=== PATIENT | male | born 1980 | race Two or more races ===

== ENCOUNTER 2016-12-19 11:33 | Emergency (ER) | payer SELFPAY ==
--- NOTE | ~2016-12-19 | ER ---
PATIENT'S NAME: DIANNE MADREA [facility] AGE: 36 Y [address] ROOM: [place] [address] LOCATION: [facility] ADMIT DATE: 12/19/2016 ER/Outpatient Report DISCHARGE DATE: 12/19/2016 FAMILY PHYSICIAN: Howard Quintero MD ATTENDING PHYSICIAN: John Matthews CHIEF COMPLAINT: Head injury and dark stools. 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 He coughed, fell over on his chair and was unresponsive for a brief minute. He did strike his head. He woke up this morning and was feeling like he had more of a headache. He has been complaining of cough and nasal congestion for the last 2 weeks, and his significant other notes that he has had significant change in dark stool and occasionally is vomiting up some dark material as well. He normally drinks several beers a day. He had more than normal to drink last night. The patient denies any acute active bleeding, no bright red blood per rectum. PAST MEDICAL HISTORY: Documented on the record and reviewed by me. SOCIAL HISTORY: Documented on the record and reviewed by me. MEDICATIONS: Documented on the record and reviewed by me. ALLERGIES: DOCUMENTED ON THE RECORD AND REVIEWED BY ME. REVIEW OF SYSTEMS: All systems reviewed and negative except as noted in the HPI. PHYSICAL EXAMINATION: VITAL SIGNS: Blood pressure 146/70, pulse 82, respiratory rate is 22, temperature 97.8, SpO2 is 94% on room air. Pain is rated 2/10. GENERAL: Age-appropriate male, in no obvious pain or distress, tired appearance, sleeping upon my arrival, easily arousable. NEURO: Sleeping, easily arousable, interactive, awake and alert shortly after initiation of interaction. No focal deficits or asymmetry appreciated. HEENT: The patient is normocephalic and atraumatic. Eyes are PERRL. Oropharynx is clear. Nasal mucosa slightly boggy with purulent discharge. PATIENT'S NAME: DIANNE [facility]ADERA [facility] AGE: 36 Y [address] ROOM: [place] [id number] LOCATION: [facility] ADMIT DATE: 12/19/2016 ER/Outpatient Report DISCHARGE DATE: 12/19/2016 FAMILY PHYSICIAN: Howard Quintero MD ATTENDING PHYSICIAN: John Matthews Sinuses are tender to palpation. TMs are pearly schaefer bilaterally with no erythema or purulence appreciated. No tenderness at the mastoid process bilateral. NECK: Supple. Trachea is midline. No adenopathy. CHEST/HEART: Regular rate and rhythm. LUNGS: Clear to auscultation bilaterally. No rhonchi, wheezes, or rales. ABDOMEN: Soft, nontender, and nondistended. No rebound, guarding, or masses. BACK: Nontender to palpation throughout. No CVA tenderness. RECTAL: Exam with scant stool in the rectal vault. Good rectal tone. Unable to palpate the prostate. Stool is dark brown-schaefer in color. EXTREMITIES: Warm and well perfused. SKIN: Warm, dry, and intact. LABORATORY DATA AND X-RAYS: Head CT was obtained and was unremarkable per Radiology's read except for sinusitis. The labs are notable for Hemoccult-positive stool. Sodium 143, potassium 4.1, chloride 107, CO2 is 28, BUN is 8, creatinine 0.9, and GFR is greater than 60. LFTs are notable for an AST of 44, ALT of 70, otherwise normal. Amylase and lipase 57 and 107 respectively. WBC 7.4, hemoglobin 14.0, and platelets of 314. IMPRESSION: 1. Mild concussion. 2. Sinusitis. 3. Occult gastrointestinal bleeding. EMERGENCY DEPARTMENT COURSE: The patient was evaluated as above. CT scan was obtained for persistent headache in the setting of recent head trauma and somnolence. No bleeding. Sinusitis diagnosed on CT with 2 weeks of symptoms present indicate the patient requires treatment and was given a prescription for Augmentin for same. The patient does have Hemoccult-positive stool with his history of dark stools, dark emesis intermittently, drinking that there is a concern for possible occult bleed or cirrhosis or other concerning interventions. He does not have any evidence of anemia or hypovolemia and does not appear to be a brisk bleed. For these reasons, I think he can be seen as an outpatient. I contacted Dr. Fam, on-call GI doctor, to explain the case. We have secured an appointment with Dr. Carr on January 09 at 3 o'clock p.m. He should return to the emergency department immediately as needed. Tylenol for his headache as needed. He was given Tylenol here in the emergency department. All questions were answered. The patient was discharged in good condition. PATIENT'S NAME: BRAD DENIS [facility] AGE: 36 Y [address] ROOM: [place] [address] LOCATION: [facility] ADMIT DATE: 12/19/2016 ER/Outpatient Report DISCHARGE DATE: 12/19/2016 FAMILY PHYSICIAN: Howard Quintero MD ATTENDING PHYSICIAN: [place] MD WILTON JIMENES/juan daniell /[id number] d: 12/19/16 2353 t: 12/20/16 0642, OUTPATIENT REPORT
[2016-12-19 12:39] LABS: BASOPHIL % 0.7 %; EOSINOPHIL # 0.1 K/uL (0.0-0.5); EOSINOPHIL % 0.9 %; HEMATOCRIT 44.1 % (37.0-53.0); HEMOGLOBIN 13.9 g/dL (12.0-17.0); IMMATURE GRANULOCYTE % 0.5 %; LYMPHOCYTE # 1.7 K/uL (0.8-4.0); LYMPHOCYTE % 30.7 %; MCH 25.3 pg (27.0-34.0); MCHC 31.5 gm/dL (32.0-36.5); MCV 80.3 fl (83.0-98.0); MONOCYTE # 0.3 K/uL (0.0-1.0); MONOCYTE % 5.3 %; MPV 11.7 fl (9.4-12.4); NEUTROPHIL # (ANC) 3.4 K/uL (1.4-9.0); NEUTROPHIL % 61.9 %; NRBC % 0 /100WBC (0-0.00); PLATELET COUNT 189 K/uL (150-450); RBC 5.49 M/uL (4.00-6.00); RDW-CV 14.8 % (11.9-14.6); WBC 5.5 K/uL (4.0-11.0)
[2016-12-19 12:52] LABS: INR - (THERAPEUTIC) 1.1 (0.9-1.1); PROTIME 11.1 SECONDS (9.6-11.1); PTT 27 SECONDS (25-32)
[2016-12-19 12:56] LABS: ALK PHOS 89 IU/L (33-138); ALT 70 IU/L (12-78); ANION GAP 12.1 (10.0-19.0); AST 44 IU/L (10-40); BLOOD UREA NITROGEN 8 mg/dL (6-24); CALCIUM 8.1 mg/dL (8.5-10.5); CHLORIDE 107 mMol/L (96-110); CO2 28 mMol/L (22-32); CREATININE 0.9 mg/dL (0.6-1.3); ESTIMATED GFR (MDRD EQUATION) > 60; POTASSIUM 4.1 mMol/L (3.7-5.1); SODIUM 143 mMol/L (135-145); TOTAL BILIRUBIN 0.6 mg/dL (0.0-1.5); TOTAL PROTEIN 7.9 g/dL (6.0-8.4)
== END 2016-12-19 13:42 | disposition disaster alternative care site (69) ==
LOC: GMED 11:33
PROVIDERS: Emergency Medicine
DX: S06.0X1A Concussion with loss of consciousness of 30 minutes or less, initial encounter (principal); J32.9 Chronic sinusitis, unspecified; K92.2 Gastrointestinal hemorrhage, unspecified; W01.190A Fall on same level from slipping, tripping and stumbling with subsequent striking against furniture, initial encounter

== ENCOUNTER 2017-05-05 16:32 | Emergency (ER) | payer SELFPAY ==
--- NOTE | ~2017-05-05 | ER ---
[facility] AGE: 37 Y [address] ROOM: [place] [id number] LOCATION: [facility] ADMIT DATE: 05/05/2017 ER/Outpatient Report DISCHARGE DATE: 05/05/2017 FAMILY PHYSICIAN: Howard Quintero MD ATTENDING PHYSICIAN: Carla Griedr Time of Patient's Arrival: 1632 hours. Time of Patient's Evaluation: 1645 hours. CHIEF COMPLAINT: Left eye itching and swelling. HISTORY OF PRESENT ILLNESS: This is a 37-year-old, male, who presents to the ER with his . He states he has had some discharge, swelling, and itchiness to his left eye for the past 2 or 3 days. He has noticed some yellow drainage from the eye, mostly in the morning when he wakes up. His eyelid is also swollen and itchy. He states the white of his eye has also been red and irritated as well. They state they had some left over eyedrops from his daughter, so he did start applying those to his eyes yesterday. He has not had any fever or chills. No nasal congestion. No ear pain. No difficulty with his vision. He states he does not particularly feel like there is anything in his eye. ALLERGIES: NO KNOWN ALLERGIES. MEDICATIONS: None. PAST MEDICAL HISTORY: Negative. PAST SURGERIES: None. SOCIAL HISTORY: He does smoke cigarettes. Denies any use of drug or alcohol use. REVIEW OF SYSTEMS: CONSTITUTIONAL: Denies any change in weight or fatigue. HEENT: He is complaining of left eye irritation and eyelid swelling. NEUROLOGIC: Cranial nerves 2 through 12 grossly intact. RESPIRATORY: No shortness of breath or cough. SKIN: Has a swollen left eyelid. PATIENT'S NAME: [facility] AGE: 37 Y [address] ROOM: [place], [place] [address] LOCATION: ED ADMIT DATE: 05/05/2017 ER/Outpatient Report DISCHARGE DATE: 05/05/2017 FAMILY PHYSICIAN: Howard Quintero MD ATTENDING PHYSICIAN: Carla Grider PHYSICAL EXAMINATION: VITAL SIGNS: Height 5 feet 11 inches stated, weight 113.0 kg taken, blood pressure is 142/68, pulse 79, respirations 18, temperature 98.2 degrees tympanically, and saturations 95% on room air. [place] Coma Score is 15. GENERAL: Alert, calm, well-developed 37-year-old, in no acute distress. HEENT: Head: Normocephalic. Eyes: Pupils are equal and reactive to light. His left conjunctiva is injected and erythematic. His upper eyelid is swollen and erythematic. I do dye the eye with fluorescein, no uptake was seen to the cornea. He has a small stye to the upper eyelash line as well. Nose: Turbinates pink with no drainage. Ears: TMs display good light reflexes bilaterally. Throat: No exudates or erythema. Does display moist mucous membranes. LABORATORY DATA AND X-RAYS: None were done. IMPRESSION: Left eye conjunctivitis, bacterial versus allergic. ASSESSMENT AND PLAN: I did place Alcaine drops to the eye before using fluorescein and then rinsed the eye thoroughly with normal saline. The patient did tolerate this all well. We will dismiss him to home with a prescription for Polytrim eye drops. I am going to place him on some Keflex as well to use as directed. He needs to take Claritin or Mojgan daily and he needs to follow up with his eye doctor if he is not improving. The patient should apply cool compresses to the eye and monitor symptoms closely. The patient understands and agrees with care. YAAKOV GOMEZ PA-C FOR MD CARLOS MCKOY/goran /[id number] d: 05/06/17 0103 t: 05/09/17 0913, OUTPATIENT REPORT
== END 2017-05-05 17:06 | disposition disaster alternative care site (69) ==
LOC: GMED 16:32
DX: H10.9 Unspecified conjunctivitis (principal); F17.210 Nicotine dependence, cigarettes, uncomplicated